=== PATIENT | male | born 1945 | race Caucasian/White ===

== ENCOUNTER 2017-07-27 11:01 | Day surgery (SDC) | payer OTHER ==
[2017-07-27] MEDS ORDERED: NS 1,000 ML IV SCH (11:45)
[2017-07-27] MEDS ORDERED: MIDAZOLAM 2 MG/2 ML VIAL ONE (12:50)
[2017-07-27] MEDS ORDERED: fentaNYL 100 MCG/2 ML INJ ONE (12:50)
[2017-07-27] MEDS ORDERED: IOPAMIDOL (ISOVUE-300) 100 ML BTL ONE ×2 (15:05→15:07)
== END 2017-07-27 18:30 | disposition home or self-care (01) ==
LOC: FIMAGING 11:01
PROVIDERS: ATTEND Neurological Surgery
PROC: B31C1ZZ Fluoroscopy of Bilateral External Carotid Arteries using Low Osmolar Contrast (ICD-10-PCS; principal; 2017-07-27)
PROC: B3181ZZ Fluoroscopy of Bilateral Internal Carotid Arteries using Low Osmolar Contrast (ICD-10-PCS; principal; 2017-07-27)
PROC: B3151ZZ Fluoroscopy of Bilateral Common Carotid Arteries using Low Osmolar Contrast (ICD-10-PCS; principal; 2017-07-27)
PROC: B31G1ZZ Fluoroscopy of Bilateral Vertebral Arteries using Low Osmolar Contrast (ICD-10-PCS; principal; 2017-07-27)
DX: I61.9 Nontraumatic intracerebral hemorrhage, unspecified (principal); I10 Essential (primary) hypertension
CPT/HCPCS: 36224; 36226; 36227; 99152; C1769; J1644; J2250; J3010; Q9967